=== PATIENT | male | born 1985 | race Caucasian/White ===

== ENCOUNTER 2018-07-16 17:29 | Inpatient (IN) | payer OTHER, MEDICAID, SELFPAY ==
[2018-07-16] VITALS (32 sets, daily range): BP systolic 122–153; BP diastolic 57–93; PULSE 65–95; RESP 6–26; TEMP 37.2–38.1; O2SAT 94–100
--- NOTE | 2018-07-16 17:30 | W.ED.GENAD ---
Discharge Plan Disposition Patient Disposition: [facility]IENT Condition: Serious Discharge Details Chief Complaint: Nausea/Vomit/Diar Clinical Impression: Acute liver failure Admit Date/Time: 07/16/18 21:58 Admit Provider: Zak Richard Attending Provider: Onel Reyes Primary Care Provider: Corina Robbins ED Provider: Latrice Narayanan Discharge Data Discharge Date/Time-TO BE ENTERED AT DEPARTURE: 07/16/18 22:45 Medical Decision Making <BRIANA Andrews - Last Filed: 07/16/18 21:43> Patient is a 32-year-old male, currently in incarcerated, with chief complaint of abdominal pain. He reports he has had abdominal pain with associated nausea/vomiting for the past 2 weeks. Reports that his symptoms began to be fairly constant over the past week with reported no p.o. intake for the past 5 to 7 days. Reports that anytime he eats leads to vomiting. Endorses fevers and chills. No previous abdominal surgeries. Patient has a history of hepatitis C but he reports that he has had normal testing for over the past 10 years. Patient has been incarcerated for the past year. On exam, patient appears jaundiced with scleral icterus. He reports that he will have been commenting on his collar for the past few days. Vital signs significant for mild hypertension with blood pressure 143/93. Patient is diffusely told on exam, worse in the right upper quadrant but no guarding, negative Elizabeth's. Plan obtain labs, abdominal pelvic CT. Patient also reports his been having chest discomfort for the past week is been fairly constant, is not worsened with exertion. Plan obtain EKG as well as troponin. Discussed this plan of the patient was in agreement. EKG was reviewed by Dr. Duarte, please see his note. Patient was in normal sinus rhythm with rate of 65 was concerning for a [address] elevation in V2 V3 with no reciprocal changes Labs significant for total bili of 9.2 AST 6300, ALT of 3700, alk phos of 260. Will obtain conjugated bilirubin as well as hepatitis panel, HIV. Conjugated bilirubin 7.92. Patient feeling improved after IV hydration and IV Phenergan CT reviewed by radiologist: Lungs: Lung bases clear. ABDOMEN: Liver: Probable fatty infiltration of the liver, difficult to confidently diagnose by CT imaging after administration of intravenous contrast. Gallbladder and bile ducts: Prominent gallbladder wall thickening versus pericholecystic fluid. Heterogeneous intermediate density material in the gallbladder. Noncalcified gallstones and/or sludge suspected. Artifact not excluded. No biliary dilatation. Pancreas: Normal appearing pancreas. Spleen: Splenomegaly, 13.5 cm craniocaudal dimension. Adrenals: Normal appearing adrenal glands. Kidneys and ureters: Small indeterminate hypoattenuating right renal lesion, incompletely characterized but statistically most likely a small renal cyst. Otherwise normal appearing kidneys. No hydronephrosis. No obstructing ureteral stones. Stomach and bowel: No oral contrast. Stomach partially decompressed. No small bowel dilatation to suggest obstruction. Normal-appearing colon. No evidence of diverticulitis or colitis. Appendix: Normal retrocecal appendix. PELVIS: Bladder: Normal appearing urinary bladder. Reproductive: Normal-appearing prostate gland and seminal vesicles. ABDOMEN and PELVIS: Intraperitoneal space: Trace pelvic fluid. No free air. Bones/joints: No acute fracture seen among the bones of the abdomen or pelvis. Soft tissues: Tiny fat-containing ventral hernia at the umbilicus, doubtful clinical significance. Vasculature: Normal caliber abdominal aorta. Lymph nodes: Scattered shotty mesenteric lymph nodes, nonspecific. IMPRESSION: 1. Prominent gallbladder wall thickening versus pericholecystic fluid. Heterogeneous intermediate density material in the gallbladder. Noncalcified gallstones and/or sludge suspected. Artifact is considered less likely but not excluded. No biliary dilatation. Clinical correlation is recommended to assess the patient for acute cholecystitis. Of note, ultrasound would be more sensitive for the detection of gallstones. 2. Probable fatty infiltration of the liver, difficult to confidently diagnose by CT imaging after administration of intravenous contrast. 3. Trace fluid in the pelvis. 4. Splenomegaly, 13.5 cm craniocaudal dimension. At this time, we do not have ultrasound available Consulted with Dr. Sevilla who advised the patient would likely need an ERCP. She advised that this likely stone in common bile duct versus liver failure and advised consulting with outside facility Contacted [facility] [place] to discuss transfer to their facility and consult with GI/general surgery. Images pushed to their facility. We are able to obtain laboratory results from time of incarceration on 09/06/2017. At that time his AST was 16, ALT 13, bili 8.3 We will obtain blood cultures and begin the patient on antibiotics. Spoke with Dr. Ardon with GI at [facility] [place]. We discussed the findings of CT, laboratory evaluation and physical exam findings. She advised that this is likely acute hepatitis more than obstruction given these findings. She reported that she would expect dilation of the common bile duct obstruction was a source. She advises likely infectious versus medication reaction versus autoimmune or ischemic. She is concerned for impending liver failure with the elevated INR. Advised continuing to monitor for mental status changes, advised that currently the patient has good mental status. She advised obtaining a Tylenol level and possibly a vasculature study, such as the ultrasound with Doppler. Advised supportive care. She is unclear as to where the source of the fever would be at this time. She advised obtaining anti-smooth muscle level, CHRISTIANO and AMA. These have been added on. [facility] currently does not have bed availability. Advised that we should continue to find higher level of care for this patient. Spoke with [facility], images reports there is well. Consult with Dr. Workman, hospitalist. Again, she and I discussed the case. She was also concerned with the patient being in liver failure. While talking to her, the acetaminophen level had returned and was found to be less than 2. She advised supportive care and that they would place the patient in the list for transfer to facility tomorrow. Consulted with Dr. Richard who agrees to admission at this time continue care of liver failure of unclear etiology <Osbaldo Duarte DO - Last Filed: 10/09/18 15:07> EKG 17: 48 Rate 65, intervals normal, sinus rhythm, less than [address] elevation in V2 and V3. No reciprocal depressions. No acute T wave inversions. No evidence of STEMI. No prior EKG for comparison. HPI <BRIANA Andrews - Last Filed: 07/16/18 21:43> General Mode of arrival: ambulatory (brought in by intermediate guards). Date/Time Provider Initiated Documentation: 07/16/18 17:30. Limitations to Documentation: no limitations. Information obtained by: patient, police and RN notes reviewed. History of Present Illness 33 year old M presents to the emergency department with the chief complaint of abdominal pain, described as mild, with intensity rated at 2. Quality is described as aching, and is localized to the abdomen (diffuse). Patient reports no radiation. Patient started experiencing this week(s) and it has been constant. No relieving factors improve symptom(s), No exacerbating factors reported . Patient notes chest pain (x1 week), diaphoresis, fever/chills, loss of appetite, nausea/vomiting (x3/day) and other (fatigue); denies confusion, cough, headaches, rash, shortness of breath and weakness. Patient did receive the following treatments prior to arrival, none Related Data Home Medications Medication Instructions Recorded Confirmed acetaminophen 650 mg PO Q6H PRN 07/16/18 07/16/18 buprenorphine-naloxone [Suboxone] 1 film SUBLINGUAL DAILY 07/16/18 07/16/18 clonidine HCl 0.1 mg PO QHS 07/16/18 07/16/18 ondansetron HCl [Zofran] 4 mg PO QID PRN 07/16/18 07/16/18 quetiapine [Seroquel] 50 mg PO HS 07/16/18 07/16/18 Allergies Allergy/AdvReac Type Severity Reaction Status Date / Time No Known Allergies Allergy Unverified 07/16/18 17:44 Review of Systems <BRIANA Andrews - Last Filed: 07/16/18 21:43> Constitutional Reports as per HPI, Reports chills, Reports fatigue, Reports fever(s), Denies headache(s), Reports lethargy and Reports poor appetite ENT Denies headache(s) Cardiovascular Reports as per HPI, Reports chest pain and Denies dyspnea Respiratory Reports as per HPI, Denies cough and Denies dyspnea Gastrointestinal Reports as per HPI Genitourinary Reports other (reports urine has been very concentrated) Musculoskeletal Reports as per HPI and Denies back pain Integumentary/Breasts Reports as per HPI and Denies rash Neurologic Reports as per HPI and Denies headache(s) Endocrine Reports fatigue PFSH <BRIANA Andrews - Last Filed: 07/16/18 21:43> Medical History Opiate dependence (Chronic) Hx of hepatitis C (Chronic) Acute hepatitis (Acute) Social History Do you feel safe in your relationship?: Yes Exam <BRIANA Andrews - Last Filed: 07/16/18 21:43> Const General: cooperative, healthy appearing, comfortable, no acute distress, well developed and ill appearing chronically Nutritional Appearance: average body habitus and well nourished Orientation: alert and awake [facility] Head: normal to inspection Mouth: moist mucous membranes Eyes Conjunctivae: conjunctival abnormality bilaterally conjunctival icterus Pupils: PERRL Resp Effort & Inspection: normal respiratory effort, able to speak in complete sentences and no respiratory distress Auscultation: clear to auscultation bilaterally, no rales, no rhonchi and no wheezes Cardio Rate: regular rate Rhythm: regular rhythm Heart Sounds: S1 normal and S2 normal GI Inspection: no abdominal wall ecchymosis, no edema, non-distended and no visible herniation Palpation: soft, no hepatosplenomegaly, not firm, no guarding and tender (diffusely tender, worse in the RUQ) not at McBurney's point, Elizabeth's sign negative and with no rebound tenderness Percussion: normal to percussion Auscultation: hypoactive bowel sounds Back/Spine/Pelvis Back: no CVA tenderness Skin General skin exam: jaundice Neuro General: alert and awake Cognition: normal cognition Speech: speech normal Gait: normal gait Psych Appearance: grossly normal and well kempt Mental Status: mental status grossly normal Speech and Movement: speech and movement normal
--- NOTE | 2018-07-16 17:41 | NUR.NOTE ---
pt has felt lethargic and nausea for past week
--- NOTE | 2018-07-16 17:44 | DI.CT_ITS ---
SYMPTOM/DIAGNOSIS: DIFFUSE RUQ AND MID ABD PAIN ABDOMEN AND PELVIC CT: CT scan of the abdomen and pelvis was performed following the uneventful administration of intravenous contrast material. There are no priors for comparison. Mild dependent atelectatic changes are seen in the lung bases. The liver is normal in size. No hepatic mass is seen. The portal, superior mesenteric and splenic veins are patent. There is enhancement of the gallbladder wall. There is gallbladder wall thickening versus pericholecystic fluid present. There is a question of some debris within the gallbladder which may represent stones or sludge. There is no biliary ductal dilatation is present. The pancreas is unremarkable as are the adrenal glands. The spleen is mildly enlarged measuring almost 14 cm. in length. The kidneys show normal and symmetric enhancement. There is a tiny hypodense lesion in the right renal cortex. It is too small for further characterization but likely reflects a cyst. No hydronephrosis is seen. The urinary bladder is intact. The reproductive organs are unremarkable. The bowel is unremarkable. There is a normal appendix present. It is retrocecal in location. The abdominal aorta is of normal caliber. No significant abdominal or pelvic adenopathy or pneumoperitoneum is seen. There is a trace amount of free fluid in the pelvis. No focal fluid collection is seen to suggest an abscess. No acute osseous abnormality is identified. IMPRESSION: Gallbladder wall thickening versus pericholecystic fluid. No biliary ductal dilatation. Question of debris seen within the gallbladder which may represent stones or sludge. Please correlate for evidence of acute cholecystitis. Ultrasound may be considered for further evaluation. Mild splenomegaly. Trace amount of free fluid in the pelvis.
[2018-07-16 18:24] LABS: Abs Immature Grans 0.01 k/cumm (0.0-0.09); HCT 40.9 % (40.0-50.0); HGB 13.9 g/dL (13.5-17.5); Mean Corpuscular Volume 82.5 fL (80-95); Mean Platelet Volume 9.6 fL (8.0-11.0); Platelet Count 169 x1000/uL (130-400); RBC 4.96 m/cumm (4.50-6.00); RBC Distribution Width 12.9 % (11.8-14.1); White Blood Cell Count 5.96 k/cumm (4.4-10.8)
[2018-07-16 18:37] LABS: INR 1.8 (0.9-1.1); PTT Activated 25.4 sec (21.0-31.4); Prothrombin Time 17.9 sec (9.3-11.0)
[2018-07-16 18:42] LABS: Albumin 3.4 g/dL (3.4-5.0); Alkaline Phosphatase 267 U/L (46-116); Anion Gap 6.3 mmol/L (3-11); BUN 17 mg/dL (7-18); Bilirubin, Total 9.2 mg/dL (0.2-1.0); CO2 35.7 mmol/L (21.0-32.0); CREATININE 1.02 mg/dL (0.70-1.30); Chloride 92 mmol/L (98-107); Glucose 97 mg/dL (70-100); Lipase 85 U/L (73-393); Magnesium 2.2 mg/dL (1.8-2.4); Potassium 3.7 mmol/L (3.5-5.1); Sodium 134 mmol/L (136-145); Total Protein 7.8 g/dL (6.4-8.2)
[2018-07-16] MEDS: Normal Saline 1,000 ML 1000 ML IV (18:45)
[2018-07-16 18:53] LABS: Absolute Basophil Count 0.06 k/cumm (0.0-0.2); Absolute Lymphocyte Count 2.09 k/cumm (1.2-3.4); Absolute Monocyte Count 0.36 k/cumm (0.11-0.7); Absolute Neutrophil Count 3.46 k/cumm (1.2-6.7); Atypical Lymphocytes % 15
[2018-07-16 18:54] LABS: Diff Comment Manual Differential; RBC Morphology Normal
[2018-07-16 18:56] LABS: Troponin I < 0.02 ng/mL (0.00-0.06)
[2018-07-16 18:59] LABS: Bilirubin Large (Negative); Blood Small (Negative); Clarity Clear; Glucose 100 mg/dL (Negative); Ketones 40 mg/dL (Negative); Leukocyte Esterase Negative (Negative); Nitrite Negative (Negative); Specific Gravity 1.025 (1.005-1.025)
[2018-07-16 19:11] LABS: Bacteria Negative HPF (Negative); Epithelial Cells Few HPF (Negative); Other Cells Mod Transitional (Negative); RBC Negative (0-2)
[2018-07-16 19:12] LABS: C & S Indicated? Yes; Crystals Moderate Amorphous HPF (Negative); Mucus Negative (Negative)
[2018-07-16] MEDS: Omnipaque 350 MG/ML 100 ML BTL IJ (19:12)
[2018-07-16 19:13] LABS: AST 6316 U/L (15-37)
[2018-07-16 19:14] LABS: ALT 3762 U/L (12-78)
[2018-07-16 19:40] LABS: Bilirubin, Direct 7.92 mg/dL (0.00-0.20)
--- NOTE | 2018-07-16 20:01 | DI.VRAD_ITS ---
Addendum created by Lester La MD on 07/16/2018 8:15:30 PM EDT This case was discussed personally with SOFIA NAYLOR at 8:14 PM EDT on 07/16/2018. The common bile duct measures 4-5 mm maximum transluminal dimension. There is no intra-or extrahepatic biliary dilatation. Initial report created on 07/16/2018 8:00:42 PM EDT EXAM: CT Abdomen and Pelvis With Contrast EXAM DATE/TIME: 07/16/2018 5:45 PM CLINICAL HISTORY: 32 years old, male; Signs and symptoms; Other: Abdominal pain, diffuse, max ruq; Additional info: Abdominal pain, diffuse, max ruq for 1 week with n/v TECHNIQUE: Imaging protocol: Axial computed tomography images of the abdomen and pelvis with intravenous contrast. Coronal and sagittal reformatted images were created and reviewed. Radiation optimization: All CT scans at this facility use at least one of these dose optimization techniques: automated exposure control; mA and/or kV adjustment per patient size (includes targeted exams where dose is matched to clinical indication); or iterative reconstruction. Contrast material: OMNIPAQUE 350; Contrast volume: 100 ml; Contrast route: IV; COMPARISON: No relevant prior studies available. FINDINGS: Lungs: Lung bases clear. ABDOMEN: Liver: Probable fatty infiltration of the liver, difficult to confidently diagnose by CT imaging after administration of intravenous contrast. Gallbladder and bile ducts: Prominent gallbladder wall thickening versus pericholecystic fluid. Heterogeneous intermediate density material in the gallbladder. Noncalcified gallstones and/or sludge suspected. Artifact not excluded. No biliary dilatation. Pancreas: Normal appearing pancreas. Spleen: Splenomegaly, 13.5 cm craniocaudal dimension. Adrenals: Normal appearing adrenal glands. Kidneys and ureters: Small indeterminate hypoattenuating right renal lesion, incompletely characterized but statistically most likely a small renal cyst. Otherwise normal appearing kidneys. No hydronephrosis. No obstructing ureteral stones. Stomach and bowel: No oral contrast. Stomach partially decompressed. No small bowel dilatation to suggest obstruction. Normal-appearing colon. No evidence of diverticulitis or colitis. Appendix: Normal retrocecal appendix. PELVIS: Bladder: Normal appearing urinary bladder. Reproductive: Normal-appearing prostate gland and seminal vesicles. ABDOMEN and PELVIS: Intraperitoneal space: Trace pelvic fluid. No free air. Bones/joints: No acute fracture seen among the bones of the abdomen or pelvis. Soft tissues: Tiny fat-containing ventral hernia at the umbilicus, doubtful clinical significance. Vasculature: Normal caliber abdominal aorta. Lymph nodes: Scattered shotty mesenteric lymph nodes, nonspecific. IMPRESSION: 1. Prominent gallbladder wall thickening versus pericholecystic fluid. Heterogeneous intermediate density material in the gallbladder. Noncalcified gallstones and/or sludge suspected. Artifact is considered less likely but not excluded. No biliary dilatation. Clinical correlation is recommended to assess the patient for acute cholecystitis. Of note, ultrasound would be more sensitive for the detection of gallstones. 2. Probable fatty infiltration of the liver, difficult to confidently diagnose by CT imaging after administration of intravenous contrast. 3. Trace fluid in the pelvis. 4. Splenomegaly, 13.5 cm craniocaudal dimension. Dictated and Authenticated by: Lester La MD. Ordering:DIONTE Pollard MD
[2018-07-16] MEDS: PIPERACILLIN/TAZO 3.375 GM in Normal Saline 50 ML IVPB (20:23)
[2018-07-16 21:24] LABS: Acetaminophen < 2 ug/mL (10-30)
--- NOTE | 2018-07-16 21:40 | W.PM.HP.N ---
Date of service: 07/16/18 Time of Service: 21:41 Assessment and Plan (1) Acute hepatitis: Current visit: Yes Status: Acute Acute hepatitis with liver failure. Etiology not apparent. Will provide general supportive measures pending lab results. Plan is to transfer to [facility] oncee bed available. In meantime have consulted with pharmacy who advise change Suboxone to Buprenorphine to 50% dose. Will continue Clonidine as this is renal clearance, and not likely to be culprit. Will trend LFTs andgive trail dose Vit K. Will also continue antibiotics pending cultures. History of Present Illness Chief Complaint: abdominal pain Narrative: 32 male with remote history of Hepatitis C, comes in with 2 weeeks of abdominal pain and nausea. In ER hepatitis noted with jaundice, bilirubin 9, ALT 3782, AST [address] shows possible fatty liver, spenomegaly, possible sludge in gallbladder but no CBD dilatation and no stones. Surgery consulted, did not feel this was a surgical matter. [facility] contacted and accepted provisionally pending bed availability. In ER fever to 38.1, patient given dose Zosyn. Patient denies any new medications or illicit ingestions. Has taken a few Tylenol during this spell but none prior. Review of Systems Review of Systems All systems reviewed & are unremarkable except as noted in HPI and below PFSH Social History Do you feel safe in your relationship?: Yes Meds Home Medications Medication Instructions Recorded Confirmed Type acetaminophen 650 mg PO Q6H PRN 07/16/18 07/16/18 History buprenorphine-naloxone [Suboxone] 1 film SUBLINGUAL DAILY 07/16/18 07/16/18 History clonidine HCl 0.1 mg PO QHS 07/16/18 07/16/18 History ondansetron HCl [Zofran] 4 mg PO QID PRN 07/16/18 07/16/18 History quetiapine [Seroquel] 50 mg PO HS 07/16/18 07/16/18 History Allergies Allergy/AdvReac Type Severity Reaction Status Date / Time No Known Allergies Allergy Unverified 07/16/18 17:44 Exam Narrative Exam Narrative: 134/74,70, 9, 38.1. Jaundiced HEENT otherwise unremarkable. Neck supple; lungs clear; heart RRR; abdomen no ascites evident, soft, mild -moderate RUQ tenderness, no hepatomegaly appreciated. /rectal deferred. Neuro 0x3, lucid, no asterixis Results Labs : 07/16/18 18:10 07/16/18 18:10 Laboratory Results - last 24 hr 07/16/18 07/16/18 07/16/18 18:10 18:10 18:10 WBC 5.96 RBC 4.96 Hgb 13.9 Hct 40.9 MCV 82.5 MCH 28.0 MCHC 34.0 RDW 12.9 Plt Count 169 MPV 9.6 Immature Gran % 0.0 Neutrophils % 58.0 Lymphocytes % 20.0 Atypical Lymphs % 15 Monocytes % 6.0 Eosinophils % 0.0 Basophils % 1.0 Absolute Neutrophils 3.46 Absolute Lymphocytes 2.09 Absolute Monocytes 0.36 Absolute Eosinophils 0.00 Absolute Basophils 0.06 Differential Comment Manual differential RBC Morphology Normal PT 17.9 H INR 1.8 H APTT 25.4 Sodium 134 L Potassium 3.7 Chloride 92 L Carbon Dioxide 35.7 H Anion Gap 6.3 BUN 17 Creatinine 1.02 Estimated GFR/1.73 m2 >= 60.00 Glucose 97 Calcium 9.0 Magnesium 2.2 Total Bilirubin 9.2 H Conjugated Bilirubin AST 6316 H ALT 3762 H Alkaline Phosphatase 267 H Troponin I < 0.02 Total Protein 7.8 Albumin 3.4 Lipase 85 Urine Color Urine Clarity Urine pH Ur Specific Talala Urine Protein Urine Ketones Urine Blood Urine Nitrite Urine Bilirubin Urine Urobilinogen Ur Leukocyte Esterase Urine RBC Urine WBC Ur Epithelial Cells Urine Crystals Urine Bacteria Urine Casts Urine Mucus Urine Other Ur Culture Indicated? Urine Glucose Acetaminophen 07/16/18 07/16/18 07/16/18 18:10 18:24 18:24 WBC RBC Hgb Hct MCV MCH MCHC RDW Plt Count MPV Immature Gran % Neutrophils % Lymphocytes % Atypical Lymphs % Monocytes % Eosinophils % Basophils % Absolute Neutrophils Absolute Lymphocytes Absolute Monocytes Absolute Eosinophils Absolute Basophils Differential Comment RBC Morphology PT INR APTT Sodium Potassium Chloride Carbon Dioxide Anion Gap BUN Creatinine Estimated GFR/1.73 m2 Glucose Calcium Magnesium Total Bilirubin Conjugated Bilirubin 7.92 H AST ALT Alkaline Phosphatase Troponin I Total Protein Albumin Lipase Urine Color Tiffany Urine Clarity Clear Urine pH 6.0 Ur Specific [place]ala 1.025 Urine Protein >=300 H Urine Ketones 40 H Urine Blood Small H Urine Nitrite Negative Urine Bilirubin Large H Urine Urobilinogen 4.0 H Ur Leukocyte Esterase Negative Urine RBC Negative Urine WBC 10-20 Ur Epithelial Cells Few Urine Crystals Moderate amorphous Urine Bacteria Negative Urine Casts 20-50 fine granular Urine Mucus Negative Urine Other Mod transitional Ur Culture Indicated? Yes Urine Glucose 100 Acetaminophen < 2 L Last Vital Signs Temp 38.1 C H 07/16/18 20:35 Pulse 71 07/16/18 20:35 Resp 18 07/16/18 20:35 BP 139/73 07/16/18 20:35 Pulse Ox 97 07/16/18 20:35
--- NOTE | 2018-07-16 21:47 | HPE_ITS ---
Date of service: 07/16/18 Time of Service: 21:41 Assessment and Plan (1) Acute hepatitis: Current visit: Yes Status: Acute Acute hepatitis with liver failure. Etiology not apparent. Will provide general supportive measures pending lab results. Plan is to transfer to [facility] oncee bed available. In meantime have consulted with pharmacy who advise change Suboxone to Buprenorphine to 50% dose. Will continue Clonidine as this is renal clearance, and not likely to be culprit. Will trend LFTs andgive trail dose Vit K. Will also continue antibiotics pending cultures. History of Present Illness Chief Complaint: abdominal pain Narrative: 32 male with remote history of Hepatitis C, comes in with 2 weeeks of abdominal pain and nausea. In ER hepatitis noted with jaundice, bilirubin 9, ALT 3782, AST [address] shows possible fatty liver, spenomegaly, possible sludge in gallbladder but no CBD dilatation and no stones. Surgery consulted, did not feel this was a surgical matter. [facility] contacted and accepted provisionally pending bed availability. In ER fever to 38.1, patient given dose Zosyn. Patient denies any new medications or illicit ingestions. Has taken a few Tylenol during this spell but none prior. Review of Systems Review of Systems All systems reviewed & are unremarkable except as noted in HPI and below PFSH Social History Do you feel safe in your relationship?: Yes Meds Home Medications Medication Instructions Recorded Confirmed Type acetaminophen 650 mg PO Q6H PRN 07/16/18 07/16/18 History buprenorphine-naloxone [Suboxone] 1 film SUBLINGUAL DAILY 07/16/18 07/16/18 History clonidine HCl 0.1 mg PO QHS 07/16/18 07/16/18 History ondansetron HCl [Zofran] 4 mg PO QID PRN 07/16/18 07/16/18 History quetiapine [Seroquel] 50 mg PO HS 07/16/18 07/16/18 History Allergies Allergy/AdvReac Type Severity Reaction Status Date / Time No Known Allergies Allergy Unverified 07/16/18 17:44 Exam Narrative Exam Narrative: 134/74,70, 9, 38.1. Jaundiced HEENT otherwise unremarkable. Neck supple; lungs clear; heart RRR; abdomen no ascites evident, soft, mild - moderate RUQ tenderness, no hepatomegaly appreciated. /rectal deferred. Neuro 0x3, lucid, no asterixis Results Labs : 07/16/18 18:10 07/16/18 18:10 Laboratory Results - last 24 hr 07/16/18 07/16/18 07/16/18 18:10 18:10 18:10 WBC 5.96 RBC 4.96 Hgb 13.9 Hct 40.9 MCV 82.5 MCH 28.0 MCHC 34.0 RDW 12.9 Plt Count 169 MPV 9.6 Immature Gran % 0.0 Neutrophils % 58.0 Lymphocytes % 20.0 Atypical Lymphs % 15 Monocytes % 6.0 Eosinophils % 0.0 Basophils % 1.0 Absolute Neutrophils 3.46 Absolute Lymphocytes 2.09 Absolute Monocytes 0.36 Absolute Eosinophils 0.00 Absolute Basophils 0.06 Differential Comment Manual differential RBC Morphology Normal PT 17.9 H INR 1.8 H APTT 25.4 Sodium 134 L Potassium 3.7 Chloride 92 L Carbon Dioxide 35.7 H Anion Gap 6.3 BUN 17 Creatinine 1.02 Estimated GFR/1.73 m2 >= 60.00 Glucose 97 Calcium 9.0 Magnesium 2.2 Total Bilirubin 9.2 H Conjugated Bilirubin AST 6316 H ALT 3762 H Alkaline Phosphatase 267 H Troponin I < 0.02 Total Protein 7.8 Albumin 3.4 Lipase 85 Urine Color Urine Clarity Urine pH Ur Specific [place] Urine Protein Urine Ketones Urine Blood Urine Nitrite Urine Bilirubin Urine Urobilinogen Ur Leukocyte Esterase Urine RBC Urine WBC Ur Epithelial Cells Urine Crystals Urine Bacteria Urine Casts Urine Mucus Urine Other Ur Culture Indicated? Urine Glucose Acetaminophen 07/16/18 07/16/18 07/16/18 18:10 18:24 18:24 WBC RBC Hgb Hct MCV MCH MCHC RDW Plt Count MPV Immature Gran % Neutrophils % Lymphocytes % Atypical Lymphs % Monocytes % Eosinophils % Basophils % Absolute Neutrophils Absolute Lymphocytes Absolute Monocytes Absolute Eosinophils Absolute Basophils Differential Comment RBC Morphology PT INR APTT Sodium Potassium Chloride Carbon Dioxide Anion Gap BUN Creatinine Estimated GFR/1.73 m2 Glucose Calcium Magnesium Total Bilirubin Conjugated Bilirubin 7.92 H AST ALT Alkaline Phosphatase Troponin I Total Protein Albumin Lipase Urine Color Tiffany Urine Clarity Clear Urine pH 6.0 Ur Specific [place] 1.025 Urine Protein >=300 H Urine Ketones 40 H Urine Blood Small H Urine Nitrite Negative Urine Bilirubin Large H Urine Urobilinogen 4.0 H Ur Leukocyte Esterase Negative Urine RBC Negative Urine WBC 10-20 Ur Epithelial Cells Few Urine Crystals Moderate amorphous Urine Bacteria Negative Urine Casts 20-50 fine granular Urine Mucus Negative Urine Other Mod transitional Ur Culture Indicated? Yes Urine Glucose 100 Acetaminophen < 2 L Last Vital Signs Temp 38.1 C H 07/16/18 20:35 Pulse 71 07/16/18 20:35 Resp 18 07/16/18 20:35 BP 139/73 07/16/18 20:35 Pulse Ox 97 07/16/18 20:35
[2018-07-16 21:51] LABS: *AMPHETAMINES SCREEN URINE Negative (Negative); *BARBITURATES SCREEN URINE Negative (Negative); *BENZODIAZEPINES SCREEN URINE Negative (Negative); Cannabinoids THC Negative (Negative); Cocaine Screen,Urine Negative (Negative); METHADONE URINE SCREEN Negative (Negative); OPIATES URINE SCREEN Negative (Negative)
[2018-07-16 21:52] LABS: Tricyclic Antidepressants Negative (Negative)
[2018-07-16] MEDS: Lactated Ringers 1,000 ML 80 ML IV (22:43)
[2018-07-16] MEDS: Normal Saline Flush 10 ML SYR IVP (23:07)
[2018-07-16] MEDS: cloNIDine 0.1 MG TAB PO (23:08)
[2018-07-17] VITALS (82 sets, daily range): BP systolic 93–137; BP diastolic 49–86; PULSE 45–71; RESP 6–21; TEMP 35.4–36.1; O2SAT 91–99
[2018-07-17] MEDS: PIPERACILLIN/TAZO 3.375 GM in Normal Saline 50 ML IVPB ×3 (01:55→14:29)
[2018-07-17] MEDS: Normal Saline Flush 10 ML SYR IVP ×3 (01:56→15:37)
[2018-07-17] MEDS: Normal Saline 500 ML IV (02:09)
[2018-07-17] MEDS: Refresh PLUS Eye Drops 0.4ml 1 EACH OU (03:57)
[2018-07-17 07:16] LABS: INR 1.6 (0.9-1.1); Prothrombin Time 16.5 sec (9.3-11.0)
[2018-07-17 07:17] LABS: Bilirubin, Total 7.3 mg/dL (0.2-1.0)
--- NOTE | 2018-07-17 08:04 | PDOC.CMIN ---
- If Service Date Differs Date of service: 07/17/18 Time of Service: 08:04 Care Management Initial Assess REASON FOR HOSPITALIZATION:: Acute Hepatitis PAST MEDICAL HISTORY/PAST SURGICAL HISTORY:: Hepatitis C PREVIOUS FUNCTIONAL STATUS/SOCIAL/FAMILY SUPPORTS:: Ovidio has been incarcerated for the past year. His mother is his main support person. He is unmarried but has 4 children (4 year old twins, and a 2 year old and a 3 year old) who live with his mother. CURRENT FUNCTIONAL STATUS:: Ovidio was sitting up in bed watching tv during CM visit. There were 2 corrections offficers in attendance.He says he has been sick for a couple of weeks. Hestates he is not feeling well at all right now because all of his routine medications have been stopped. ADVANCE DIRECTIVES:: None on file. Has patient been provided with information about the portal?: No Did the patient sign up for the portal?: No CODE STATUS:: Full Code INSURANCE COVERAGE / FINANCIAL ISSUES:: Medicaid [place] CURRENT HOME/COMMUNITY SERVICES/EQUIPMENT:: incarcerated PRIMARY CARE PHYSICIAN:: Corina Robbins POTENTIAL DISCHARGE NEEDS:: transportation, tertiary care PATIENT/FAMILY EDUCATION NEEDS:: Discharge plan, limitations ANTICIPATED BARRIERS TO DISCHARGE:: none identified TRANSPORTATION:: Via department of corrections or ambulance, depending on disposition PLAN:: Ovidio has been accepted as a transfer to [facility] when a bed is available.He will be transported by ambulance with correctional officers in attendance. CM will continue to provide support to patient, family, and care team.
--- NOTE | 2018-07-17 08:10 | INITIAL_ITS ---
- If Service Date Differs Date of service: 07/17/18 Time of Service: 08:04 Care Management Initial Assess REASON FOR HOSPITALIZATION:: Acute Hepatitis PAST MEDICAL HISTORY/PAST SURGICAL HISTORY:: Hepatitis C PREVIOUS FUNCTIONAL STATUS/SOCIAL/FAMILY SUPPORTS:: Ovidio has been incarcerated for the past year. His mother is his main support person. He is unmarried but has 4 children (4 year old twins, and a 2 year old and a 3 year old) who live with his mother. CURRENT FUNCTIONAL STATUS:: Ovidio was sitting up in bed watching tv during CM visit. There were 2 corrections offficers in attendance.He says he has been sick for a couple of weeks. Hestates he is not feeling well at all right now because all of his routine medications have been stopped. ADVANCE DIRECTIVES:: None on file. Has patient been provided with information about the portal?: No Did the patient sign up for the portal?: No CODE STATUS:: Full Code INSURANCE COVERAGE / FINANCIAL ISSUES:: Medicaid [place] CURRENT HOME/COMMUNITY SERVICES/EQUIPMENT:: incarcerated PRIMARY CARE PHYSICIAN:: Corina Robbins POTENTIAL DISCHARGE NEEDS:: transportation, tertiary care PATIENT/FAMILY EDUCATION NEEDS:: Discharge plan, limitations ANTICIPATED BARRIERS TO DISCHARGE:: none identified TRANSPORTATION:: Via department of corrections or ambulance, depending on disposition PLAN:: Ovidio has been accepted as a transfer to [facility] when a bed is available.He will be transported by ambulance with correctional officers in attendance. CM will continue to provide support to patient, family, and care team.
[2018-07-17 09:02] LABS: ALT 4192 U/L (12-78); AST 4478 U/L (15-37)
[2018-07-17] MEDS: PHYTONADIONE 10 MG in Normal Saline 50 ML 200 MG IVPB (10:45)
--- NOTE | 2018-07-17 11:55 | DI.US_ITS ---
SYMPTOMS/DIAGNOSIS: ACUTE HEPATITIS ABDOMINAL ULTRASOUND: Comparison CT scan 07/16/18. The aorta is of normal caliber. The inferior vena cava is unremarkable. The liver is enlarged measuring 20.4 cm in length. There is no evidence of a hepatic mass. The contour of the liver is smooth. There is normal portal vein flow. There is diffuse thickening of the wall of the gallbladder up to 1.4 cm. The wall does have a striated appearance. No stones or sludge is seen. No pericholecystic fluid is seen. The common duct is within normal limits at .6 cm. The pancreas and kidneys are unremarkable. The spleen is enlarged measuring 14.9 cm. No abdominal free fluid is seen. IMPRESSION: 1.Diffuse thickening of the wall of the gallbladder up to 1.4 cm. No evidence of cholelithiasis, biliary ductal dilatation or Elizabeth's sign. The findings is not specific. Inflammatory process should be considered. Other etiologies such as hepatic dysfunction, sepsis or renal disease may also be considered. 2. Hepatosplenomegaly.
--- NOTE | 2018-07-17 12:12 | DI.RAD_ITS ---
SYMPTOMS/DIAGNOSIS: FEVER PA AND LATERAL CHEST: Comparison is 07/03/16. The heart size and pulmonary vasculature are within normal limits. The lungs are clear. No effusions or pneumothoraces are identified. There are again seen calcifications in the right axilla which may be lymph nodes. IMPRESSION: No acute pulmonary process.
--- NOTE | 2018-07-17 13:11 | PHARADMIT ---
Admission Pharmacy Clinical Review ACUTE HEPATITIS, LIVER FAILURE Code Status Full Code Current Weight Wgt-100.8 kg Renally Cleared and Narrow Therapeutic Index Meds CrCl~ 118 mL/min Meds-OK QTc Value / Action Taken QTc-445 NA BP Control, Fever BP- 128/71 Tmax- 37.4C Electrolytes reviewed Na- 134 K+3.7 Mag-2.2 DVT Prophylaxis none Opiate Usage / Scheduled Bowel Regimen Ordered No No Plt/SCr for Heparin / Enoxaparin Plts-169 SCr-1.02 INR for Warfarin INR-1.6 H/H stable, WBC/Bands H&H- 13.9/40.9 WBC-5.96 Antibiotic appropriateness Zosyn Cultures and Sensitivities Blood, Urine-Pending Surgical ABX d/c within 24 hr NA DM control / Insulin Dosing BG- 97 Heart Failure (Check EF%) (YURIY's, B-Block, Diuretics) Clonidine IV to PO Switch No Home Meds Reviewed Yes Home Meds Not Ordered Suboxone (held), Zofran Seroquel, Adderall Comments
[2018-07-17] MEDS: Buprenorphine/Naloxone 12 mg/3 mg FILM 1 EACH SL (15:29)
--- NOTE | 2018-07-17 16:34 | W.PM.DS.N ---
Date of service: 07/17/18 Time of Service: 16:34 DS: Diagnosis Discharge Diagnosis (1) Acute hepatitis: Status: Acute (2) Hx of hepatitis C: Status: Chronic Discharge Plan Disposition Condition: Serious Discharge Details Reason For Visit: ACUTE HEPATITIS, LIVER FAILURE Admit Date/Time: 07/16/18 21:58 Admit Provider: Zak Richard Attending Provider: Zak Richard Primary Care Provider: Corina Robbins [facility] Hospital Course Hospital Course: 32 year-old man with a prior history of Hepatitis C Exposure, currently incarcerated, admitted from [facility] Emergency Department on 07/16 with a diagnosis of Acute Hepatitis. Mr. Veloz has a prior history of opiate dependence, chronically mintained on Buprenorphine. He also reports a history of Hepatitis C, no evidence of prior treatment, and states that he was told that it 'cleared'. The patient states that approximately 2 weeks ago he began experiencing significant subjective fevers and chills, with concurrent nausea, vomiting, and abdominal pain. [facility], and he was advised to hydrate and monitor symptoms per verbal report from the patient. He was sent to the ED for evaluation of ongoing abdominal pain. Upon presentation he was noted to be significantly Jaundiced, with diffuse abdominal pain that was significantly worse in the RUQ on exam. Labs were significant for mild hyponatremia and hypochloremia in the setting of dehydration, but also with an AST of 6316, ALT of 3762, with an alk phos minimally elevated at 267. His total bilirubin was significantly elevated at 9.2, with a conjugated Bilirubin value of 7.92 and an INR of 1.8. His CBC was entirely unremarkable, and his urinalysis showed proteinuria (>300), Ketones, and large bilirubin, but negative for blood or infection. CT of his abdomen was remarkable for GB wall thickening vs. Pericholecystic fluid, without ductal dilation. Of note, his Tylenol level at time of admission was negative. Initial conversation was held between the ED and the covering surgeon, who considered the diagnosis of potential Choledocholithiasis with concurrent cholangitis, and recommended an ERCP. The patient at that time was referred for admission. Following admission Mr. Veloz was evaluated this morning. His LFTs remain elevated, with an AST value of 4478, ALT of 4192, with a Total bilirubin of 7.3. His INR has improved to 1.6. Given his fever last evening a CXR was obtained and negative. His liver ultrasound showed diffuse thickening of the GB wall, up to 1.4 cm, with no evidence of cholelithiasis, Biliary Ductal dilatation, or Elizabeth's sign. Also noted to have hepatosplenomegally. Given the patient's history, including 2 weeks' of fevers, chills, nausea/vomiting, and current labs and imaging results thought was given to a potential infectious/post-infectious (i.e. viral) acute Hepatitis over obstructive process. Obviously cannot rule out autoimmune, and doubt ischemic. Current liver numbers appear stable, and labs including HIV, Acute Hepatitis Panel, Anti-SM Abs, CHRISTIANO, AMA, etc. are pending at this time. Mr. Veloz was initiated on N-Acytelcysteine, and given Vitamin K, and continued on supportive care with IVFs. Thought was also given regarding potential hepatotoxicity from Burprenorphine, but less likely - this medication is currently continued. He was also maintained on Pip-Tazo, though doubt bacterial infection. The patient was accepted in transfer, and being discharged to [facility] in stable condition. Home Meds and New Rx's Prescriptions: Continued buprenorphine-naloxone [Suboxone] 12-3 mg Film 1 film SUBLINGUAL DAILY RF: 0 clonidine HCl 0.1 mg Tablet 0.1 mg PO QHS RF: 0 acetaminophen 325 mg Tablet 650 mg PO Q6H PRNRF: 0 ondansetron HCl [Zofran] 4 mg Tablet 4 mg PO QID PRNRF: 0 quetiapine [Seroquel] 50 mg Tablet 50 mg PO HS RF: 0 Discharge Instructions Activity:: Activity as Tolerated Activity:: Activity as Tolerated Diet:: Hepatic diet DS: Data Vitals/I&O Vitals and I&O: Vital Signs Temperature 36.1 C L 07/17/18 12:42 Temperature Source Temporal Artery Scan 07/17/18 12:42 Pulse 55 L 07/17/18 13:49 Pulse 53 L 07/17/18 14:00 Respiratory Rate 12 07/17/18 14:00 Respiratory Effort 07/17/18 12:42 Respiratory Depth Normal 07/17/18 12:42 Respiratory Pattern Normal 07/17/18 12:42 Blood Pressure 131/79 07/17/18 13:49 Blood Pressure Mean 90 07/17/18 13:49 Blood Pressure Position Supine 04/30/19 17:42 Pulse Oximetry 95 07/17/18 14:00 Oxygen Delivery Method Room Air 07/17/18 12:42 Oxygen Flow Rate 0 07/17/18 12:42 Pain Level 8 07/17/18 12:42 Intake & Output 07/16/18 07/17/18 07/17/18 23:59 11:59 23:59 Intake Total 1100.5 / 1100.5 1443.667 / 1633.667 190 / 1633.667 Output Total 850 / 850 375 / 375 Balance 250.5 / 250.5 1068.667 / 1258.667 190 / 1258.667 Weight 98.2 kg 100.8 kg Intake: IV 1100.5 / 1100.5 1053.667 / 1063.667 10 / 1063.667 Oral 390 / 570 180 / 570 Output: Urine 850 / 850 375 / 375 Other: Urine Color Light Tiffany Brown Urine Appearance Sediment Clear Urine Odor Normal None Comment dark-colored urine Denies need to void at this time. Has not voided as of yet this shift. Pt told that we expect some urine at least every 8 hours for good kidney health. Urinal left at the bedside. Stool Characteristics Soft Voiding Methods Urinal Labs on day of discharge: Labs from last 24 hours 07/17/18 07/17/18 07/17/18 06:20 06:20 06:20 WBC RBC Hgb Hct MCV MCH MCHC RDW Plt Count MPV Immature Gran % Neutrophils % Lymphocytes % Atypical Lymphs % Monocytes % Eosinophils % Basophils % Absolute Neutrophils Absolute Lymphocytes Absolute Monocytes Absolute Eosinophils Absolute Basophils Differential Comment RBC Morphology PT 16.5 H INR 1.6 H APTT Sodium Potassium Chloride Carbon Dioxide Anion Gap BUN Creatinine Estimated GFR/1.73 m2 Glucose Calcium Magnesium Total Bilirubin 7.3 H Conjugated Bilirubin AST 4478 H ALT 4192 H Alkaline Phosphatase Troponin I Total Protein Albumin Lipase Urine Color Urine Clarity Urine pH Ur Specific [place] Urine Protein Urine Ketones Urine Blood Urine Nitrite Urine Bilirubin Urine Urobilinogen Ur Leukocyte Esterase Urine RBC Urine WBC Ur Epithelial Cells Urine Crystals Urine Bacteria Urine Casts Urine Mucus Urine Other Ur Culture Indicated? Urine Glucose Urine Opiates Screen Urine Methadone Screen Acetaminophen Ur Barbiturates Screen Ur Tricyclics Screen Ur Amphetamines Screen U Benzodiazepines Scrn Urine Cocaine Screen Ur THC Screen CHRISTIANO Titer CHRISTIANO Titer 2 CHRISTIANO Titer 3 CHRISTIANO Interpretation Mitochondria M2 Ab Pending Anti-Smooth Muscle Ab Hepatitis A IgM Ab Hep Bs Antigen Hep B Core Total Ab Hepatitis C Antibody HIV 1&2 Ag/Ab, 4th Gen 07/17/18 07/16/18 07/16/18 06:20 19:57 18:24 WBC RBC Hgb Hct MCV MCH MCHC RDW Plt Count MPV Immature Gran % Neutrophils % Lymphocytes % Atypical Lymphs % Monocytes % Eosinophils % Basophils % Absolute Neutrophils Absolute Lymphocytes Absolute Monocytes Absolute Eosinophils Absolute Basophils Differential Comment RBC Morphology PT INR APTT Sodium Potassium Chloride Carbon Dioxide Anion Gap BUN Creatinine Estimated GFR/1.73 m2 Glucose Calcium Magnesium Total Bilirubin Conjugated Bilirubin AST ALT Alkaline Phosphatase Troponin I Total Protein Albumin Lipase Urine Color Urine Clarity Urine pH Ur Specific [place] Urine Protein Urine Ketones Urine Blood Urine Nitrite Urine Bilirubin Urine Urobilinogen Ur Leukocyte Esterase Urine RBC Urine WBC Ur Epithelial Cells Urine Crystals Urine Bacteria Urine Casts Urine Mucus Urine Other Ur Culture Indicated? Urine Glucose Urine Opiates Screen Negative Urine Methadone Screen Negative Acetaminophen Ur Barbiturates Screen Negative Ur Tricyclics Screen Negative Ur Amphetamines Screen Negative U Benzodiazepines Scrn Negative Urine Cocaine Screen Negative Ur THC Screen Negative CHRISTIANO Titer Pending CHRISTIANO Titer 2 Pending CHRISTIANO Titer 3 Pending CHRISTIANO Interpretation Pending Mitochondria M2 Ab Anti-Smooth Muscle Ab Pending Hepatitis A IgM Ab Hep Bs Antigen Hep B Core Total Ab Hepatitis C Antibody HIV 1&2 Ag/Ab, 4th Gen Pending 07/16/18 07/16/18 07/16/18 18:24 18:24 18:10 WBC RBC Hgb Hct MCV MCH MCHC RDW Plt Count MPV Immature Gran % Neutrophils % Lymphocytes % Atypical Lymphs % Monocytes % Eosinophils % Basophils % Absolute Neutrophils Absolute Lymphocytes Absolute Monocytes Absolute Eosinophils Absolute Basophils Differential Comment RBC Morphology PT INR APTT Sodium Potassium Chloride Carbon Dioxide Anion Gap BUN Creatinine Estimated GFR/1.73 m2 Glucose Calcium Magnesium Total Bilirubin Conjugated Bilirubin 7.92 H AST ALT Alkaline Phosphatase Troponin I Total Protein Albumin Lipase Urine Color Tiffany Urine Clarity Clear Urine pH 6.0 Ur Specific [place] 1.025 Urine Protein >=300 H Urine Ketones 40 H Urine Blood Small H Urine Nitrite Negative Urine Bilirubin Large H Urine Urobilinogen 4.0 H Ur Leukocyte Esterase Negative Urine RBC Negative Urine WBC 10-20 Ur Epithelial Cells Few Urine Crystals Moderate amorphous Urine Bacteria Negative Urine Casts 20-50 fine granular Urine Mucus Negative Urine Other Mod transitional Ur Culture Indicated? Yes Urine Glucose 100 Urine Opiates Screen Urine Methadone Screen Acetaminophen < 2 L Ur Barbiturates Screen Ur Tricyclics Screen Ur Amphetamines Screen U Benzodiazepines Scrn Urine Cocaine Screen Ur THC Screen CHRISTIANO Titer CHRISTIANO Titer 2 CHRISTIANO Titer 3 CHRISTIANO Interpretation Mitochondria M2 Ab Anti-Smooth Muscle Ab Hepatitis A IgM Ab Hep Bs Antigen Hep B Core Total Ab Hepatitis C Antibody HIV 1&2 Ag/Ab, 4th Gen 07/16/18 07/16/18 07/16/18 18:10 18:10 18:10 WBC 5.96 RBC 4.96 Hgb 13.9 Hct 40.9 MCV 82.5 MCH 28.0 MCHC 34.0 RDW 12.9 Plt Count 169 MPV 9.6 Immature Gran % 0.0 Neutrophils % 58.0 Lymphocytes % 20.0 Atypical Lymphs % 15 Monocytes % 6.0 Eosinophils % 0.0 Basophils % 1.0 Absolute Neutrophils 3.46 Absolute Lymphocytes 2.09 Absolute Monocytes 0.36 Absolute Eosinophils 0.00 Absolute Basophils 0.06 Differential Comment Manual differential RBC Morphology Normal PT 17.9 H INR 1.8 H APTT 25.4 Sodium Potassium Chloride Carbon Dioxide Anion Gap BUN Creatinine Estimated GFR/1.73 m2 Glucose Calcium Magnesium Total Bilirubin Conjugated Bilirubin AST ALT Alkaline Phosphatase Troponin I Total Protein Albumin Lipase Urine Color Urine Clarity Urine pH Ur Specific [place] Urine Protein Urine Ketones Urine Blood Urine Nitrite Urine Bilirubin Urine Urobilinogen Ur Leukocyte Esterase Urine RBC Urine WBC Ur Epithelial Cells Urine Crystals Urine Bacteria Urine Casts Urine Mucus Urine Other Ur Culture Indicated? Urine Glucose Urine Opiates Screen Urine Methadone Screen Acetaminophen Ur Barbiturates Screen Ur Tricyclics Screen Ur Amphetamines Screen U Benzodiazepines Scrn Urine Cocaine Screen Ur THC Screen CHRISTIANO Titer CHRISTIANO Titer 2 CHRISTIANO Titer 3 CHRISTIANO Interpretation Mitochondria M2 Ab Anti-Smooth Muscle Ab Hepatitis A IgM Ab Pending Hep Bs Antigen Pending Hep B Core Total Ab Pending Hepatitis C Antibody Pending HIV 1&2 Ag/Ab, 4th Gen 07/16/18 18:10 WBC RBC Hgb Hct MCV MCH MCHC RDW Plt Count MPV Immature Gran % Neutrophils % Lymphocytes % Atypical Lymphs % Monocytes % Eosinophils % Basophils % Absolute Neutrophils Absolute Lymphocytes Absolute Monocytes Absolute Eosinophils Absolute Basophils Differential Comment RBC Morphology PT INR APTT Sodium 134 L Potassium 3.7 Chloride 92 L Carbon Dioxide 35.7 H Anion Gap 6.3 BUN 17 Creatinine 1.02 Estimated GFR/1.73 m2 >= 60.00 Glucose 97 Calcium 9.0 Magnesium 2.2 Total Bilirubin 9.2 H Conjugated Bilirubin AST 6316 H ALT 3762 H Alkaline Phosphatase 267 H Troponin I < 0.02 Total Protein 7.8 Albumin 3.4 Lipase 85 Urine Color Urine Clarity Urine pH Ur Specific [place] Urine Protein Urine Ketones Urine Blood Urine Nitrite Urine Bilirubin Urine Urobilinogen Ur Leukocyte Esterase Urine RBC Urine WBC Ur Epithelial Cells Urine Crystals Urine Bacteria Urine Casts Urine Mucus Urine Other Ur Culture Indicated? Urine Glucose Urine Opiates Screen Urine Methadone Screen Acetaminophen Ur Barbiturates Screen Ur Tricyclics Screen Ur Amphetamines Screen U Benzodiazepines Scrn Urine Cocaine Screen Ur THC Screen CHRISTIANO Titer CHRISTIANO Titer 2 CHRISTIANO Titer 3 CHRISTIANO Interpretation Mitochondria M2 Ab Anti-Smooth Muscle Ab Hepatitis A IgM Ab Hep Bs Antigen Hep B Core Total Ab Hepatitis C Antibody HIV 1&2 Ag/Ab, 4th Gen 07/16/18 20:22 Blood Blood Culture - Pending 07/16/18 20:18 Blood Blood Culture - Pending Preliminary micro results at discharge 07/16/18 18:24 Urine Culture - Preliminary Urine - Reflex from Ua 07/16/18 20:22 Blood Culture - Pending Blood 07/16/18 20:18 Blood Culture - Pending Blood [facility], [facility] Medical History Opiate dependence (Chronic) Hx of hepatitis C (Chronic) Acute hepatitis (Acute) Social History Do you feel safe in your relationship?: Yes
--- NOTE | 2018-07-17 16:41 | DSE_ITS ---
Date of service: 07/17/18 Time of Service: 16:34 DS: Diagnosis Discharge Diagnosis (1) Acute hepatitis: Status: Acute (2) Hx of hepatitis C: Status: Chronic Discharge Plan Disposition Condition: Serious Discharge Details Reason For Visit: ACUTE HEPATITIS, LIVER FAILURE Admit Date/Time: 07/16/18 21:58 Admit Provider: Zak Richard Attending Provider: Zak Richard Primary Care Provider: Corina Robbins [facility] Hospital Course: 32 year-old man with a prior history of Hepatitis C Exposure, currently incarcerated, admitted from [facility] Emergency Department on 07/16 with a diagnosis of Acute Hepatitis. Mr. Veloz has a prior history of opiate dependence, chronically mintained on Buprenorphine. He also reports a history of Hepatitis C, no evidence of prior treatment, and states that he was told that it 'cleared'. The patient states that approximately 2 weeks ago he began experiencing significant subjective fevers and chills, with concurrent nausea, vomiting, and abdominal pain. [facility], and he was advised to hydrate and monitor symptoms per verbal report from the patient. He was sent to the ED for evaluation of ongoing abdominal pain. Upon presentation he was noted to be significantly Jaundiced, with diffuse abdominal pain that was significantly worse in the RUQ on exam. Labs were significant for mild hyponatremia and hypochloremia in the setting of dehydration, but also with an AST of 6316, ALT of 3762, with an alk phos minimally elevated at 267. His total bilirubin was significantly elevated at 9.2, with a conjugated Bilirubin value of 7.92 and an INR of 1.8. His CBC was entirely unremarkable, and his urinalysis showed prote inuria (>300), Ketones, and large bilirubin, but negative for blood or infection. CT of his abdomen was remarkable for GB wall thickening vs. Pericholecystic fluid, without ductal dilation. Of note, his Tylenol level at time of admission was negative. Initial conversation was held between the ED and the covering surgeon, who considered the diagnosis of potential Choledocholithiasis with concurrent cholangitis, and recommended an ERCP. The patient at that time was referred for admission. Following admission Mr. Veloz was evaluated this morning. His LFTs remain elevated, with an AST value of 4478, ALT of 4192, with a Total bilirubin of 7.3. His INR has improved to 1.6. Given his fever last evening a CXR was obtained and negative. His liver ultrasound showed diffuse thickening of the GB wall, up to 1.4 cm, with no evidence of cholelithiasis, Biliary Ductal dilatation, or Elizabeth's sign. Also noted to have hepatosplenomegally. Given the patient's history, including 2 weeks' of fevers, chills, nausea/vomiting, and current labs and imaging results thought was given to a potential infectious/post-infectious (i.e. viral) acute Hepatitis over obstructive process. Obviously cannot rule out autoimmune, and doubt ischemic. Current liver numbers appear stable, and labs including HIV, Acute Hepatitis Panel, Anti-SM Abs, CHRISTIANO, AMA, etc. are pending at this time. Mr. Veloz was initiated on N-Acytelcysteine, and given Vitamin K, and continued on supportive care with IVFs. Thought was also given regarding potential hepatotoxicity from Burprenorphine, but less likely - this medication is currently continued. He was also maintained on Pip-Tazo, though doubt bacterial infection. The patient was accepted in transfer, and being discharged to [facility] in stable condition. Home Meds and New Rx's Prescriptions: Continued buprenorphine-naloxone [Suboxone] 12-3 mg Film 1 film SUBLINGUAL DAILY RF: 0 clonidine HCl 0.1 mg Tablet 0.1 mg PO QHS RF: 0 acetaminophen 325 mg Tablet 650 mg PO Q6H PRNRF: 0 ondansetron HCl [Zofran] 4 mg Tablet 4 mg PO QID PRNRF: 0 quetiapine [Seroquel] 50 mg Tablet 50 mg PO HS RF: 0 Discharge Instructions Activity:: Activity as Tolerated Activity:: Activity as Tolerated Diet:: Hepatic diet DS: Data Vitals/I&O Vitals and I&O: Vital Signs Temperature 36.1 C L 07/17/18 12:42 Temperature Source Temporal Artery Scan 07/17/18 12:42 Pulse 55 L 07/17/18 13:49 Pulse 53 L 07/17/18 14:00 Respiratory Rate 12 07/17/18 14:00 Respiratory Effort 07/17/18 12:42 Respiratory Depth Normal 07/17/18 12:42 Respiratory Pattern Normal 07/17/18 12:42 Blood Pressure 131/79 07/17/18 13:49 Blood Pressure Mean 90 07/17/18 13:49 Blood Pressure Position Supine 07/16/18 17:42 Pulse Oximetry 95 07/17/18 14:00 Oxygen Delivery Method Room Air 07/17/18 12:42 Oxygen Flow Rate 0 07/17/18 12:42 Pain Level 8 07/17/18 12:42 Intake & Output 07/16/18 07/17/18 07/17/18 23:59 11:59 23:59 Intake Total 1100.5 / 1100.5 1443.667 / 1633.667 190 / 1633.667 Output Total 850 / 850 375 / 375 Balance 250.5 / 250.5 1068.667 / 1258.667 190 / 1258.667 Weight 98.2 kg 100.8 kg Intake: IV 1100.5 / 1100.5 1053.667 / 1063.667 10 / 1063.667 Oral 390 / 570 180 / 570 Output: Urine 850 / 850 375 / 375 Other: Urine Color Light Tiffany Brown Urine Appearance Sediment Clear Urine Odor Normal None Comment dark-colored urine Denies need to void at this time. Has not voided as of yet this shift. Pt told that we expect some urine at least every 8 hours for good kidney health. Urinal left at the bedside. Stool Characteristics Soft Voiding Methods Urinal Labs on day of discharge: Labs from last 24 hours 07/17/18 07/17/18 07/17/18 06:20 06:20 06:20 WBC RBC Hgb Hct MCV MCH MCHC RDW Plt Count MPV Immature Gran % Neutrophils % Lymphocytes % Atypical Lymphs % Monocytes % Eosinophils % Basophils % Absolute Neutrophils Absolute Lymphocytes Absolute Monocytes Absolute Eosinophils Absolute Basophils Differential Comment RBC Morphology PT 16.5 H INR 1.6 H APTT Sodium Potassium Chloride Carbon Dioxide Anion Gap BUN Creatinine Estimated GFR/1.73 m2 Glucose Calcium Magnesium Total Bilirubin 7.3 H Conjugated Bilirubin AST 4478 H ALT 4192 H Alkaline Phosphatase Troponin I Total Protein Albumin Lipase Urine Color Urine Clarity Urine pH Ur Specific [place] Urine Protein Urine Ketones Urine Blood Urine Nitrite Urine Bilirubin Urine Urobilinogen Ur Leukocyte Esterase Urine RBC Urine WBC Ur Epithelial Cells Urine Crystals Urine Bacteria Urine Casts Urine Mucus Urine Other Ur Culture Indicated? Urine Glucose Urine Opiates Screen Urine Methadone Screen Acetaminophen Ur Barbiturates Screen Ur Tricyclics Screen Ur Amphetamines Screen U Benzodiazepines Scrn Urine Cocaine Screen Ur THC Screen CHRISTIANO Titer CHRISTIANO Titer 2 CHRISTIANO Titer 3 CHRISTIANO Interpretation Mitochondria M2 Ab Pending Anti-Smooth Muscle Ab Hepatitis A IgM Ab Hep Bs Antigen Hep B Core Total Ab Hepatitis C Antibody HIV 1&2 Ag/Ab, 4th Gen 07/17/18 07/16/18 07/16/18 06:20 19:57 18:24 WBC RBC Hgb Hct MCV MCH MCHC RDW Plt Count MPV Immature Gran % Neutrophils % Lymphocytes % Atypical Lymphs % Monocytes % Eosinophils % Basophils % Absolute Neutrophils Absolute Lymphocytes Absolute Monocytes Absolute Eosinophils Absolute Basophils Differential Comment RBC Morphology PT INR APTT Sodium Potassium Chloride Carbon Dioxide Anion Gap BUN Creatinine Estimated GFR/1.73 m2 Glucose Calcium Magnesium Total Bilirubin Conjugated Bilirubin AST ALT Alkaline Phosphatase Troponin I Total Protein Albumin Lipase Urine Color Urine Clarity Urine pH Ur Specific [place] Urine Protein Urine Ketones Urine Blood Urine Nitrite Urine Bilirubin Urine Urobilinogen Ur Leukocyte Esterase Urine RBC Urine WBC Ur Epithelial Cells Urine Crystals Urine Bacteria Urine Casts Urine Mucus Urine Other Ur Culture Indicated? Urine Glucose Urine Opiates Screen Negative Urine Methadone Screen Negative Acetaminophen Ur Barbiturates Screen Negative Ur Tricyclics Screen Negative Ur Amphetamines Screen Negative U Benzodiazepines Scrn Negative Urine Cocaine Screen Negative Ur THC Screen Negative CHRISTIANO Titer Pending CHRISTIANO Titer 2 Pending CHRISTIANO Titer 3 Pending CHRISTIANO Interpretation Pending Mitochondria M2 Ab Anti-Smooth Muscle Ab Pending Hepatitis A IgM Ab Hep Bs Antigen Hep B Core Total Ab Hepatitis C Antibody HIV 1&2 Ag/Ab, 4th Gen Pending 07/16/18 07/16/18 07/16/18 18:24 18:24 18:10 WBC RBC Hgb Hct MCV MCH MCHC RDW Plt Count MPV Immature Gran % Neutrophils % Lymphocytes % Atypical Lymphs % Monocytes % Eosinophils % Basophils % Absolute Neutrophils Absolute Lymphocytes Absolute Monocytes Absolute Eosinophils Absolute Basophils Differential Comment RBC Morphology PT INR APTT Sodium Potassium Chloride Carbon Dioxide Anion Gap BUN Creatinine Estimated GFR/1.73 m2 Glucose Calcium Magnesium Total Bilirubin Conjugated Bilirubin 7.92 H AST ALT Alkaline Phosphatase Troponin I Total Protein Albumin Lipase Urine Color Tiffany Urine Clarity Clear Urine pH 6.0 Ur Specific [place] 1.025 Urine Protein >=300 H Urine Ketones 40 H Urine Blood Small H Urine Nitrite Negative Urine Bilirubin Large H Urine Urobilinogen 4.0 H Ur Leukocyte Esterase Negative Urine RBC Negative Urine WBC 10-20 Ur Epithelial Cells Few Urine Crystals Moderate amorphous Urine Bacteria Negative Urine Casts 20-50 fine granular Urine Mucus Negative Urine Other Mod transitional Ur Culture Indicated? Yes Urine Glucose 100 Urine Opiates Screen Urine Methadone Screen Acetaminophen < 2 L Ur Barbiturates Screen Ur Tricyclics Screen Ur Amphetamines Screen U Benzodiazepines Scrn Urine Cocaine Screen Ur THC Screen CHRISTIANO Titer CHRISTIANO Titer 2 CHRISTIANO Titer 3 CHRISTIANO Interpretation Mitochondria M2 Ab Anti-Smooth Muscle Ab Hepatitis A IgM Ab Hep Bs Antigen Hep B Core Total Ab Hepatitis C Antibody HIV 1&2 Ag/Ab, 4th Gen 07/16/18 07/16/18 07/16/18 18:10 18:10 18:10 WBC 5.96 RBC 4.96 Hgb 13.9 Hct 40.9 MCV 82.5 MCH 28.0 MCHC 34.0 RDW 12.9 Plt Count 169 MPV 9.6 Immature Gran % 0.0 Neutrophils % 58.0 Lymphocytes % 20.0 Atypical Lymphs % 15 Monocytes % 6.0 Eosinophils % 0.0 Basophils % 1.0 Absolute Neutrophils 3.46 Absolute Lymphocytes 2.09 Absolute Monocytes 0.36 Absolute Eosinophils 0.00 Absolute Basophils 0.06 Differential Comment Manual differential RBC Morphology Normal PT 17.9 H INR 1.8 H APTT 25.4 Sodium Potassium Chloride Carbon Dioxide Anion Gap BUN Creatinine Estimated GFR/1.73 m2 Glucose Calcium Magnesium Total Bilirubin Conjugated Bilirubin AST ALT Alkaline Phosphatase Troponin I Total Protein Albumin Lipase Urine Color Urine Clarity Urine pH Ur Specific [place] Urine Protein Urine Ketones Urine Blood Urine Nitrite Urine Bilirubin Urine Urobilinogen Ur Leukocyte Esterase Urine RBC Urine WBC Ur Epithelial Cells Urine Crystals Urine Bacteria Urine Casts Urine Mucus Urine Other Ur Culture Indicated? Urine Glucose Urine Opiates Screen Urine Methadone Screen Acetaminophen Ur Barbiturates Screen Ur Tricyclics Screen Ur Amphetamines Screen U Benzodiazepines Scrn Urine Cocaine Screen Ur THC Screen CHRISTIANO Titer CHRISTIANO Titer 2 CHRISTIANO Titer 3 CHRISTIANO Interpretation Mitochondria M2 Ab Anti-Smooth Muscle Ab Hepatitis A IgM Ab Pending Hep Bs Antigen Pending Hep B Core Total Ab Pending Hepatitis C Antibody Pending HIV 1&2 Ag/Ab, 4th Gen 07/16/18 18:10 WBC RBC Hgb Hct MCV MCH MCHC RDW Plt Count MPV Immature Gran % Neutrophils % Lymphocytes % Atypical Lymphs % Monocytes % Eosinophils % Basophils % Absolute Neutrophils Absolute Lymphocytes Absolute Monocytes Absolute Eosinophils Absolute Basophils Differential Comment RBC Morphology PT INR APTT Sodium 134 L Potassium 3.7 Chloride 92 L Carbon Dioxide 35.7 H Anion Gap 6.3 BUN 17 Creatinine 1.02 Estimated GFR/1.73 m2 >= 60.00 Glucose 97 Calcium 9.0 Magnesium 2.2 Total Bilirubin 9.2 H Conjugated Bilirubin AST 6316 H ALT 3762 H Alkaline Phosphatase 267 H Troponin I < 0.02 Total Protein 7.8 Albumin 3.4 Lipase 85 Urine Color Urine Clarity Urine pH Ur Specific [place] Urine Protein Urine Ketones Urine Blood Urine Nitrite Urine Bilirubin Urine Urobilinogen Ur Leukocyte Esterase Urine RBC Urine WBC Ur Epithelial Cells Urine Crystals Urine Bacteria Urine Casts Urine Mucus Urine Other Ur Culture Indicated? Urine Glucose Urine Opiates Screen Urine Methadone Screen Acetaminophen Ur Barbiturates Screen Ur Tricyclics Screen Ur Amphetamines Screen U Benzodiazepines Scrn Urine Cocaine Screen Ur THC Screen CHRISTIANO Titer CHRISTIANO Titer 2 CHRISTIANO Titer 3 CHRISTIANO Interpretation Mitochondria M2 Ab Anti-Smooth Muscle Ab Hepatitis A IgM Ab Hep Bs Antigen Hep B Core Total Ab Hepatitis C Antibody HIV 1&2 Ag/Ab, 4th Gen 07/16/18 20:22 Blood Blood Culture - Pending 07/16/18 20:18 Blood Blood Culture - Pending Preliminary micro results at discharge 07/16/18 18:24 Urine Culture - Preliminary Urine - Reflex from Ua 07/16/18 20:22 Blood Culture - Pending Blood 07/16/18 20:18 Blood Culture - Pending Blood [facility] Medical History Opiate dependence (Chronic) Hx of hepatitis C (Chronic) Acute hepatitis (Acute) Social History Do you feel safe in your relationship?: Yes
[2018-07-18 10:11] LABS: HIV-1/2 Ag & Ab Screen Negative (NEGAT)
[2018-07-18 11:19] LABS: Hepatitis A Antibody IgM Negative (NEGAT); Hepatitis B Core Antibody Negative (NEGAT); Hepatitis B surface Ag Negative (NEGAT); Hepatitis C Ab w Rflx HCV PCR Reactive (NEGAT)
[2018-07-18 14:18] LABS: ANA Interpretation Negative (NEGAT)
[2018-07-18 16:09] LABS: Smooth Muscle Ab Screen Negative (Negative)
[2018-07-18 22:55] LABS: Mitochondrial Ab, M2 <0.1 U
== END 2018-07-17 17:50 | disposition short-term general hospital (02) | DRG 442 ==
LOC: ER 21:43 → ICU 22:42
PROVIDERS: Admitting Provider General Practice; Emergency Provider Physician Assistant; PCP Internal Medicine; Visit Provider Internal Medicine
DX: K72.00 Acute and subacute hepatic failure without coma (principal); B19.9 Unspecified viral hepatitis without hepatic coma; R17 Unspecified jaundice; E87.1 Hypo-osmolality and hyponatremia; R50.9 Fever, unspecified; R10.11 Right upper quadrant pain; E86.0 Dehydration; F11.21 Opioid dependence, in remission; Z86.19 Personal history of other infectious and parasitic diseases; R16.2 Hepatomegaly with splenomegaly, not elsewhere classified; R11.2 Nausea with vomiting, unspecified
CPT/HCPCS: 36415; 80053; 80307; 83516; 83690; 86704; 86709; 86803; 87040; 87340; 87389; 93005; 96365; 96367; 99223; 99239; 99285; 71046; 74177; 76700; 80329; 81003; 81015; 82247; 82248; 83735; 84450; 84460; 84484; 85025; 85610; 85730; 86038; 86255; 87086; 87522; 93010; J0132; J2543; J3430; J3490; J7060

== ENCOUNTER 2019-09-01 05:13 | Emergency (ER) | payer MEDICAID, SELFPAY ==
[2019-09-01 05:15] VITALS: BP 150/105; PULSE 69; RESP 16; TEMP 36.2; O2SAT 69
--- NOTE | 2019-09-01 05:25 | W.ED.GENAD ---
Discharge Plan Disposition Patient Disposition: HOME Condition: Good Discharge Details Chief Complaint: DentalOral Clinical Impression: Pain, dental Primary Care Provider: Corina Robbins ED Provider: Osbaldo Duarte Home Meds and New Rx's Prescriptions: New penicillin V potassium 500 mg tablet 500 mg PO QID 10 Days Qty: 40 RF: 0 Continued buprenorphine-naloxone [Suboxone] 12-3 mg Film 1 film SUBLINGUAL DAILY RF: 0 clonidine HCl 0.1 mg Tablet 0.1 mg PO QHS RF: 0 acetaminophen 325 mg Tablet 650 mg PO Q6H PRNRF: 0 ondansetron HCl [Zofran] 4 mg Tablet 4 mg PO QID PRNRF: 0 quetiapine [Seroquel] 50 mg Tablet 50 mg PO HS RF: 0 Discharge Instructions Instructions: Toothache (ED) Additional Instructions: You have an infected tooth. Please take the antibiotic as directed. Please take 1000 mg of Tylenol every 6 hours and 800 mg of ibuprofen every 6 hours to help with the pain. If you notice any worsening of your symptoms, or any new symptoms such as vomiting, diarrhea, fever, chills, shortness of breath, chest pain, numbness, weakness, or fainting , please return immediately to the emergency department for reevaluation. Please follow up with your dentist as soon as possible for reassessment and reevaluation. As always, it was a pleasure participating in your medical care today. Referrals: Corina Robbins [Primary Care Provider] - Medical Decision Making Pleasant 34-year-old male presents with complaint of right upper molar dental pain. Exam demonstrates notable dental caries, no periapical abscess. Suspect acute pulpitis. First dose of Pen-Vee K was given here, dental block was performed patient had complete resolution of his pain. Patient will be discharged home with dental sheet for local dentist. Discussed red flags which to return. I have extensively reviewed the treatment plan and discharge instructions with the patient. I have addressed all patient concerns at this time. The patient was made aware of what symptoms to monitor for that would warrant a return to the emergency department. Discussed the plan with the patient, they demonstrate verbal understanding and agreement with our assessment and plan at this time. Time out was taken to identify the correct patient, procedure, and site. Risks and benefits were discussed with the patient and consent was obtained. Direct pressure was held over the area prior to the procedure to reduce painful injection. Bupivacaine 0.25% was instilled into the right posterior superior alveolar space with a 27 gauge needle.Complete analgesia was obtained. The patient tolerated the procedure. There were no complications. HPI General Date/Time Provider Initiated Documentation: 09/01/19 05:18. HPI Narrative: 34-year-old male with past medical history of hepatitis C and dental pain presents today for evaluation of right upper dental pain. He is known dental caries, however over the last 24 hours he noted severe pain in the right upper dental area. He has been taking self medicated opiates to help control the pain but this is not been caring for it. He has not yet seen a dentist. He denies any complaints of fever chills difficulty swallowing or breathing. No other complaints at this time. No other modifying factors. Related Data Home Medications Medication Instructions Recorded Confirmed acetaminophen 650 mg PO Q6H PRN 07/16/18 07/16/18 buprenorphine-naloxone [Suboxone] 1 film SUBLINGUAL DAILY 07/16/18 07/16/18 clonidine HCl 0.1 mg PO QHS 07/16/18 07/16/18 ondansetron HCl [Zofran] 4 mg PO QID PRN 07/16/18 07/16/18 quetiapine [Seroquel] 50 mg PO HS 07/16/18 07/16/18 penicillin V potassium 500 mg PO QID 10 Days #40 tab 09/01/19 Previous Rx's Medication Instructions Recorded penicillin V potassium 500 mg PO QID 10 Days #40 tab 09/01/19 Allergies Allergy/AdvReac Type Severity Reaction Status Date / Time No Known Allergies Allergy Unverified 07/16/18 17:44 General Stated Complaint: DentalOral WILFRED: 4 Review of Systems All systems reviewed & are unremarkable except as noted in HPI and below PFSH Medical History Acute hepatitis (Acute) Hx of hepatitis C (Chronic) Opiate dependence (Chronic) Social History Smoking/Tobacco Use Status: Current every day Tobacco Type: cigarettes Drug use: Daily Substance use type: marijuana, crack/cocaine and heroin Do you feel safe at home: Yes Do you feel safe in your relationship?: Yes Exam Narrative Exam Narrative: 1.Const: Well-nourished, Well-developed, appearing stated age 2.Eyes: PERRL, no conjunctival injection, and symmetrical lids. 3.ENT: Atraumatic external nose and ears. Moist MM. Neck: Symmetric, trachea midline, No thyromegaly. Notable dental caries throughout, no periapical abscess. Severe rotting tooth in the right posterior superior molar. 4.CVS: +S1/S2, No murmurs or gallops. Peripheral pulses 2+ and equal in all extremities. Brisk capillary refill in all extremities. 5.RESP: Unlabored respiratory effort. Clear to auscultation bilaterally. No wheezes rales or rhonchi 6.GI: Soft, Nontender/Nondistended, No hepatosplenomegaly. No guarding or rebound. 7.MSK: Normocephalic/Atraumatic, Extremities w/o deformity or ttp No cyanosis or clubbing, Normal movement of all extremities 8.Skin: Warm, Dry. No rashes or lesions. 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 Sensation grossly intact, no focal neurologic deficits. 10.Psych: (AAO) x3. Appropriate mood and affect Course Vital Signs Vital signs: Vital Signs Temperature 36.2 C L 09/01/19 05:15 Pulse 69 09/01/19 05:15 Respiratory Rate 16 09/01/19 05:15 Blood Pressure 150/105 H 09/01/19 05:15 Pulse Oximetry 69 L 09/01/19 05:15 Temperature 36.2 C L 09/01/19 05:15 Temperature Source Temporal Artery Scan 09/01/19 05:15 Pulse 69 09/01/19 05:15 Respiratory Rate 16 09/01/19 05:15 Respiratory Effort 09/01/19 05:17 Blood Pressure 150/105 H 09/01/19 05:15 Blood Pressure Position Sitting 09/01/19 05:15 Pulse Oximetry 69 L 09/01/19 05:15 Oxygen Delivery Method Room Air 09/01/19 05:15 Oxygen Flow Rate 0 09/01/19 05:15 Pain Level 10 09/01/19 05:15
[2019-09-01] MEDS: Penicillin V POTASSIUM 500 MG TAB (05:26)
[2019-09-01 05:27] VITALS: BP 150/105; PULSE 69; RESP 16; TEMP 36.2; O2SAT 96
== END 2019-09-01 05:30 | disposition home or self-care (01) ==
LOC: ER 05:33
PROVIDERS: Emergency Provider Student in an Organized Health Care Education/Training Program; PCP Internal Medicine
DX: R68.84 Jaw pain (principal); K04.7 Periapical abscess without sinus; F11.20 Opioid dependence, uncomplicated
CPT/HCPCS: 64450

== ENCOUNTER 2022-09-11 03:06 | Outpatient (CLI) | payer MEDICAID, SELFPAY ==
[2022-09-11 15:20] LABS: Abs Immature Grans 0.01 10^3/uL (0.0-0.06); Absolute Basophil Count 0.02 10^3/uL (0.0-0.2); Absolute Eosinophil Count 0.06 10^3/uL (0.0-0.7); Absolute Lymphocyte Count 2.11 10^3/uL (1.2-3.4); Absolute Monocyte Count 0.33 10^3/uL (0.1-0.8); Absolute Neutrophil Count 3.33 10^3/uL (1.2-6.7); Basophils % 0.3; HCT 39.4 % (40.0-50.0); HGB 13.4 g/dL (13.5-17.5); Immature Grans % 0.2; MCH 28.9 pg (27.0-33.0); MCV 85 fL (80-95); MPV 9.1 fL (8.0-11.0); Monocytes % 5.6; Neutrophils % 56.9; Platelet Count 253 10^3/uL (130-400); RBC 4.64 10^6/uL (4.36-5.78); RDW 12.9 % (11.8-14.1); RDW-SD 39.5 fL; WBC 5.86 10^3/uL (4.4-10.8)
[2022-09-11 15:36] LABS: ALT 101 U/L (16-63); AST 94 U/L (15-37); Albumin 3.8 g/dL (3.4-5.0); Alkaline Phosphatase 77 U/L (46-116); Anion Gap 8.1 mmol/L (3-11); BUN 12 mg/dL (7-18); Bilirubin, Total 0.6 mg/dL (0.2-1.0); CO2 28.9 mmol/L (21.0-32.0); CREATININE 0.9 mg/dL (0.70-1.30); Calcium 9.1 mg/dL (8.5-10.1); Chloride 100 mmol/L (98-107); Estimated GFR 111.42 (mL/min/1.73m2); GGT 35 U/L (15-85); Glucose 110 mg/dL (74-106); Potassium 3.5 mmol/L (3.5-5.1); Sodium 137 mmol/L (136-145)
[2022-09-13 13:35] LABS: HCV RNA Qualitative Detected (Undetected)
[2022-09-13 14:27] LABS: Hepatitis C Ab w Rflx HCV PCR Reactive (Negative)
[2022-09-13 16:11] LABS: HBs Antibody, Quant >1000.0 mIU/mL (See Note); Hepatitis B Surface Ab Positive (See Note)
[2022-09-13 16:20] LABS: Hepatitis B Surface Ag Negative (Negative)
[2022-09-13 16:59] LABS: HIV-1/2 Ag & Ab Screen Negative (Negative)
[2022-09-13 17:13] LABS: Hep B Core Antibody Negative (Negative)
[2022-09-14 08:28] LABS: Hep A Total Ab w Rflx IgM Positive (Negative)
[2022-09-14 12:31] LABS: Hep A Antibody IgM Negative (Negative)
[2022-09-14 14:54] LABS: HCV Genotype 2 (Undetected)
== END 2022-09-11 03:07 | disposition home or self-care (01) ==
LOC: LBO 03:06
PROVIDERS: PCP Internal Medicine; Visit Provider Nurse Practitioner Gerontology
DX: F11.20 Opioid dependence, uncomplicated (principal)
CPT/HCPCS: 36415; 80053; 86704; 86706; 86709; 86803; 87340; 87389; 87522; 82977; 85025; 87521

== ENCOUNTER 2023-05-18 03:11 | Outpatient (CLI) | payer MEDICAID, SELFPAY ==
[2023-05-18 14:26] LABS: Abs Immature Grans 0.03 10^3/uL (0.0-0.06); Absolute Basophil Count 0.06 10^3/uL (0.0-0.2); Absolute Eosinophil Count 0.15 10^3/uL (0.0-0.7); Absolute Lymphocyte Count 3.01 10^3/uL (1.2-3.4); Absolute Monocyte Count 0.38 10^3/uL (0.1-0.8); Absolute Neutrophil Count 3.36 10^3/uL (1.2-6.7); Basophils % 0.9; Eosinophils % 2.1; HCT 43.2 % (40.0-50.0); HGB 14.3 g/dL (13.5-17.5); Immature Grans % 0.4; Lymphocytes % 43.1; MCH 27.9 pg (27.0-33.0); MCHC 33.1 % (32.0-36.0); MCV 84 fL (80-95); MPV 9.3 fL (8.0-11.0); Monocytes % 5.4; Neutrophils % 48.1; Platelet Count 270 10^3/uL (130-400); RBC 5.13 10^6/uL (4.36-5.78); RDW 12.8 % (11.8-14.1); RDW-SD 39.1 fL; WBC 6.99 10^3/uL (4.4-10.8)
[2023-05-18 14:53] LABS: ALT 15 U/L (16-63); AST 24 U/L (15-37); Albumin 3.9 g/dL (3.4-5.0); Alkaline Phosphatase 61 U/L (46-116); Bilirubin, Direct 0.1 mg/dL (0.0-0.2); Bilirubin, Total 0.4 mg/dL (0.2-1.0); Total Protein 7.9 g/dL (6.4-8.2)
[2023-05-18 15:07] LABS: ALT 17 U/L (16-63); AST 25 U/L (15-37); Alkaline Phosphatase 59 U/L (46-116); Anion Gap 7.7 mmol/L (3-11); BUN 15 mg/dL (7-18); Bilirubin, Total 0.4 mg/dL (0.2-1.0); CO2 30.3 mmol/L (21.0-32.0); Calcium 9.7 mg/dL (8.5-10.1); Calculated LDL 119 mg/dL (<100); Chloride 104 mmol/L (98-107); Cholesterol 200 mg/dL (<200); Estimated GFR 98.18 (mL/min/1.73m2); Glucose 85 mg/dL (74-106); HDL Cholesterol 50 mg/dL (40-60); Potassium 3.6 mmol/L (3.5-5.1); Sodium 142 mmol/L (136-145); TSH 1.23 uIU/Ml (0.36-3.74); Triglyceride 156 mg/dL (<150)
[2023-05-21 11:49] LABS: HCV RNA Qualitative Undetected (Undetected)
== END 2023-05-18 03:12 | disposition home or self-care (01) ==
LOC: LBO 03:12
PROVIDERS: Nurse Practitioner Gerontology; PCP Internal Medicine; Visit Provider Internal Medicine
DX: B18.2 Chronic viral hepatitis C (principal)
CPT/HCPCS: 80053; 80061; 80076; 86803; 87522; 84443; 85025

== ENCOUNTER 2024-03-22 16:23 | Emergency (ER) | payer MEDICAID, SELFPAY ==
[2024-03-22 16:34] VITALS: BP 138/80; PULSE 110; RESP 16; TEMP 36.3; O2SAT 96
[2024-03-22] MEDS: Ibuprofen 600 MG TAB PO (16:59)
[2024-03-22 17:00] VITALS: BP 138/80; PULSE 110; RESP 16; TEMP 36.3; O2SAT 96
[2024-03-22] MEDS: Doxycycline Hyclate 100 MG CAP PO (17:43)
[2024-03-22] MEDS: Doxycycline Hyclate 100 MG, 2 CAPS/BTL PO (17:43)
--- NOTE | 2024-03-22 23:11 | ED.GENADUL_ITS ---
Discharge Plan Disposition Patient Disposition: Home Discharge Details Clinical Impression: Abscess Primary Care Provider: Corina Robbins ED Provider: Joleen Khoury Home Meds and New Rx's Prescriptions: New doxycycline hyclate 100 mg tablet 100 mg PO BID Qty: 14 0RF No Action dextroamphetamine-amphetamine 20 mg tablet 40 mg PO ONCE Patient Comments: TAKE ONE TABLET BY MOUTH TWICE A DAY Discharge Instructions Instructions: Abscess Drainage, Percutaneous (DC) Additional Instructions: Please keep your wound clean and dry. Wash daily with antibacterial soap and water and cover with a clean nonstick bandage. Apply a warm compress for 15 to 20 minutes at a time 3-4 times a day. I prescribed for you an antibiotic to treat the infection. Take the full course of doxycycline as prescribed. Return to emergency care if you develop worsening redness, pain, fever/chills or general feeling of unwellness, or if you are very worried and need to be rechecked again immediately Referrals: Corina Robbins [Primary Care Provider] - Discharge Data Discharge Date/Time-TO BE ENTERED AT DEPARTURE: 03/22/24 17:46 HPI General Date/Time Provider Initiated Documentation: 03/22/24 16:24 . HPI Narrative: Ovidio is a 38year old male who presents to the emergency department today for evaluation of abscess. He reports that approximately 4 or 5 days ago he noticed a pimple just above his groin. He popped it and has been draining pus from it. The area has become tender and swollen around it. Denies associated fever/chills, general malaise, swollen lymph nodes. Past medical history is significant for illicit drug use, denies injections. Physical exam remarkable for 7 cm x 3 cm area of redness and induration in the suprapubic area. A small area of purulent drainage is noted. An ultrasound was used to confirm abscess, approximately 1 cm x 1 cm pocket of fluid noted. History and presentation consistent uncomplicated abscess. No red flags concerning for systemic infection, extension of infection, or sepsis requiring blood work or diagnostic imaging at this time. I&D performed after local anesthesia with 1.5 cc 2% lidocaine and epi performed. A 1 cm incision was made using a #11 scalpel. A moderate amount of pus was able to be expressed. Loculations were broken up using curved hemostats. Patient tolerated procedure well. Nonstick bandage applied. Doxycycline initiated in the emergency department to cover for MRSA. Reviewed discharge instructions with patient, including symptomatic management, importance of use of antibiotics, and red flags indicating need for return to emergency care. He voices agreement with plan of care. Related Data Home Medications ?Medication ?Instructions ?Recorded ?Confirmed dextroamphetamine-amphetamine 20 40 mg PO ONCE 03/22/24 03/22/24 mg tablet doxycycline hyclate 100 mg tablet 100 mg PO BID #14 tabs 03/22/24 Previous Rx's ?Medication ?Instructions ?Recorded doxycycline hyclate 100 mg tablet 100 mg PO BID #14 tabs 03/22/24 Allergies Allergy/AdvReac Type Severity Reaction Status Date / Time No Known Allergies Allergy Unverified 03/22/24 17:32 General Stated Complaint: Cellulitis WILFRED: 3 Review of Systems Narrative: See HPI Exam Const General: cooperative, healthy appearing and no acute distress Nutritional Appearance: average body habitus Orientation: alert and oriented x3 Resp Effort & Inspection: normal respiratory effort and able to speak in complete sentences Skin Other: 7 cm x 3 cm area of redness and induration, consistent with abscess with surrounding cellulitis Full body images: 2 1. Area of abscess Course Vital Signs Vital signs: Vital Signs Temperature 36.3 C L 03/22/24 16:34 Pulse 110 H 03/22/24 16:34 Respiratory Rate 16 03/22/24 16:34 Blood Pressure 138/80 03/22/24 16:34 Pulse Oximetry 96 03/22/24 16:34 Temperature 36.3 C L 03/22/24 17:00 Temperature Source Oral 03/22/24 17:00 Pulse 110 H 03/22/24 17:00 Respiratory Rate 16 03/22/24 17:00 Blood Pressure 138/80 03/22/24 17:00 Pulse Oximetry 96 03/22/24 17:00 Oxygen Delivery Method Room Air 03/22/24 17:00 Procedures Abscess I/D Site: Abdomen (Suprapubic area) Local Anesthetic: Lidocaine 2% and With Epi Amount of anesthesia used (mL): 1.5 Technique: Incised with #11 Blade Irrigation: No Packing used?: None Medical Decision Making Quality:SDOH Health Related Social Needs: 2 Health related social needs material hardship(utilitie s) (Z59.12) PFSH All Active Problems (Updated 03/22/24 @ 17:35 by Joleen Melchor) Abscess (Acute) Opiate dependence (Chronic) Hx of hepatitis C (Chronic) Acute hepatitis (Acute) Social History Smoking/Tobacco Use Status: Current every day Tobacco Type: cigarettes Smoking risk assessment performed?: Yes Drug use: Daily Substance use type: marijuana, crack/cocaine and heroin Housing: other Do you feel safe at home: Yes Do you feel safe in your relationship?: Yes
== END 2024-03-22 17:46 | disposition home or self-care (01) ==
PROVIDERS: Emergency Provider Nurse Practitioner Family; PCP Internal Medicine
DX: L02.214 Cutaneous abscess of groin (principal); F17.210 Nicotine dependence, cigarettes, uncomplicated
CPT/HCPCS: 10060; 99284; J2004